=== PATIENT | male | born 1955 | race Caucasian/White ===

== ENCOUNTER 2024-03-13 18:43 | Emergency (ER) | payer OTHER, SELFPAY ==
--- NOTE | ~2024-03-13 | XR_ITS ---
EXAMINATION: XR finger 1st RT min 2V DATE: 03/13/2024 19:12 INDICATION: Right thumb injury. TECHNIQUE: 3 views of right thumb were obtained. COMPARISON: None. FINDINGS: Bone alignment is normal. No fracture. There is mild osteoarthritis of first carpometacarpa l joint and first interphalangeal joint. There is moderate osteoarthritis of triscaphe joint. IMPRESSION: 1. Polyarticular osteoarthritis. Reviewed, dictated and finalized at location E.
[2024-03-13 18:59] VITALS: BP 120/99; PULSE 96; RESP 16; TEMP 36.4; O2SAT 98
--- NOTE | 2024-03-13 19:09 | ED.EXTPRO ---
HPI - Extremity Problem General Chief complaint: Extremity Problem,Nontraumatic Stated complaint: thumb injury Time Seen by Provider: 03/13/24 19:09 Source: patient Mode of arrival: ambulatory Limitations: no limitations History of Present Illness HPI Narrative: 68-year-old male presented with complaint of a laceration to the right thumb after smashing finger between 2 tables. Rates pain 1/10. 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 Thumb nail avulsion noted with laceration/flap. Unsure of last tetanus. Related Data Home Medications Medication Instructions Recorded Confirmed losartan 25 mg tablet mg 03/13/24 Allergies Allergy/AdvReac Type Severity Reaction Status Date / Time No Known Allergies Allergy Verified 03/13/24 18:59 Review of Systems Review of Systems: CONSTITUTIONAL: Denies body aches, fever, chills CARDIOVASCULAR: Denies chest pain, palpitations, or edema. RESPIRATORY: Denies cough or dyspnea. GASTROINTESTINAL: Denies abdominal pain, nausea, vomiting, or diarrhea. SKIN: Denies rash, itching, or wounds. MUSCULOSKELETAL: Reports injury to right thumb NEUROLOGIC: Denies headache, numbness, tingling, or weakness. All systems reviewed & are unremarkable except as noted in HPI and below PMFSH Past Medical History Medical History (Updated 03/13/24 @ 20:19 by Caridad Mckeon APRN) Hypertension Comments At time of signature, I have reviewed and agree with nursing past medical, surgical, social and family history unless otherwise noted. Please see nursing chart for further information. There is no relevant family history pertinent to the presenting complaint Exam Narrative: GENERAL: Well-appearing CHEST: Speaks in full sentences. No respiratory distress. HEART: Regular rate and rhythm. Normal and equal peripheral pulses. EXTREMITIES: Right distal thumb with laceration approx 1cm length, flap. Distal nail involvement avulsion approx 0.5cm across width of nail. Subungual hematoma noted to proximal aspect of nail bed < 0.5cm diameter. Digit has normal strength and sensation, normal range of motion. No obvious deformity; pulse palpable and equal bilaterally, skin warm, dry, pink. Capillary refill less than 3 seconds. SKIN: Warm, dry, no rash. NEURO: Alert and oriented x3. PSYCH: Normal mood and affect Extrem: Hand/finger images: 1. nail avulsion 2. flap 3. subungual hematoma Course Course Emergency Course: Patient is aware of diagnosis, understands and agrees to treatment plan. Anticipatory guidance given. Patient agrees to follow-up as directed and is aware of reasons to seek care at the emergency department. Portions of this record may have been created with voice recognition software Level of Care: Express Care Visit Vital Signs Vital signs: Vital Signs Temperature 97.5 F L 03/13/24 18:59 Pulse Rate 96 03/13/24 18:59 Respiratory Rate 16 03/13/24 18:59 Blood Pressure 120/99 H 03/13/24 18:59 Pulse Oximetry 98 03/13/24 18:59 Oxygen Delivery Room Air 03/13/24 18:59 Temperature 97.5 F L 03/13/24 18:59 Pulse Rate 96 03/13/24 18:59 Respiratory Rate 16 03/13/24 18:59 Blood Pressure 120/99 H 03/13/24 18:59 Pulse Oximetry 98 03/13/24 18:59 Oxygen Delivery Room Air 03/13/24 18:59 Reviewed Procedures Laceration Right thumb: Size (cm): 1 Description: flap and irregular Depth: simple, single layer Local Anesthetic: lidocaine 1% Amount of anesthesia used (mL): 2 Pre-repair: irrigated and other (Cleansed with skin integrity and saline and Betadine) ====== Skin Level ====== Skin layer closed with: nylon Size (cm): 6-0 Number of sutures: 3 Technique: simple, interrupted ====== Subcutaneous Layer ====== ====== Muscle Layer ====== ====== Tendon Layer ====== Dressing: The procedure and its
[2024-03-13] MEDS: LIDOCAINE HCL 1% LOCAL INJ 2 ML AMPUL 4 ML INFILTRATE (19:33)
[2024-03-13] MEDS: TETANUS,DIPHTHERIA,AC PERTUSSIS ADULT (0.5 ML) BOOSTRIX IM (19:33)
== END 2024-03-13 20:24 | disposition home or self-care (01) ==
PROVIDERS: Emergency Provider Nurse Practitioner Family
DX: S61.111A Laceration without foreign body of right thumb with damage to nail, initial encounter (principal); X58.XXXA Exposure to other specified factors, initial encounter; Z23 Encounter for immunization; I10 Essential (primary) hypertension
CPT/HCPCS: 12001; 73140; 90471; 90715; 99213; G0463